=== PATIENT | female | born 2000 | race African-American/Black ===

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

== ENCOUNTER 2022-02-10 12:44 | Inpatient (IN) | payer MEDICAID ==
[~2022-02-10] VITALS: Ht 160 cm; Wt 73.0 kg
[2022-02-10] MEDS ORDERED: METHYLERGONOVINE MALEATE 0.2 MG/ML IM PRN (17:30)
[2022-02-10] MEDS ORDERED: LIDOCAINE HCL 1% 20ML VIAL (Pyxis) INJ INFIL SCH (17:30)
[2022-02-10] MEDS ORDERED: BUTORPHANOL TARTRATE 2 MG/ML VIAL IV PRN (17:30)
[2022-02-10] MEDS ORDERED: NALOXONE HCL 0.4 MG/ML 1ML VIAL IM PRN (17:30)
[2022-02-10] MEDS ORDERED: OXYTOCIN 30 UNITS/500ML NS PMX 500 ML IV SCH (17:30)
[2022-02-10] MEDS: LACTATED RINGERS 1,000 ML IV SCH ×3 (18:48→22:44)
[2022-02-10] MEDS ORDERED: PENICILLIN G POTASSIUM 5 MMU in DEXT 5% WATER 100 ML IV NR (19:00)
[2022-02-10 19:14] LABS: CLARITY URINE CLOUDY (CLEAR); COLOR URINE YELLOW (YELLOW); KETONES URINE 1+ (NEGATIVE); LEUKOCYTE ESTERASE URINE TRACE (NEGATIVE); NITRITE URINE NEGATIVE (NEGATIVE); OCCULT BLOOD URINE NEGATIVE (NEGATIVE); PH URINE 6.5 (4.5-8.0); PROTEIN URINE 3+ (NEGATIVE); SPECIFIC GRAVITY URINE 1.024 (1.005-1.030)
[2022-02-10 19:15] LABS: BASOPHILS % 0.2 % (0.0-2.0); EOSINOPHILS % 0.5 % (0.0-5.0); HEMATOCRIT. 27.7 % (36.0-48.0); HEMOGLOBIN. 9.1 g/dL (12.0-16.0); LYMPHOCYTES % 24.9 % (20.0-50.0); MEAN CORPUSCULAR HEMOGLOBIN 27.5 pg (28.0-32.0); MEAN CORPUSCULAR VOLUME 83.4 fL (81.0-99.0); MEAN PLATELET VOLUME 9.9 fl (7.4-10.4); MONOCYTES % 12.2 % (2.0-8.0); NEUTROPHILS % 62.2 % (40.0-76.0); PLATELET 178 x1000/uL (130-400); RED BLOOD CELL COUNT 3.32 mill/uL (4.2-5.4); RED CELL DISTRIBUTION WIDTH 13.6 % (11.6-14.6)
[2022-02-10 19:20] LABS: INR 0.9; PARTIAL THROMBOPLASTIN TIME 28.3 sec (23.4-31.0); PROTHROMBIN TIME 9.9 sec (9.6-11.0)
[2022-02-10] MEDS ORDERED: ROPIVACAINE HCL/PF EPIDURAL 200 ML EPI ONE (19:49)
[2022-02-10] MEDS ORDERED: FENTANYL CITRATE/PF 50MCG/ML 2ML VIAL ONE (19:49)
[2022-02-10 20:34] LABS: *AMPHETAMINES SCREEN URINE NEGATIVE (NEGATIVE); *BARBITURATES SCREEN URINE NEGATIVE (NEGATIVE); *BENZODIAZEPINES SCREEN URINE NEGATIVE (NEGATIVE); *COCAINE SCREEN URINE NEGATIVE (NEGATIVE); CANNABINOID URINE SCREEN NEGATIVE (NEGATIVE); METHADONE URINE SCREEN NEGATIVE (NEGATIVE); OPIATES URINE SCREEN NEGATIVE (NEGATIVE); PHENCYCLIDINE URINE SCREEN NEGATIVE (NEGATIVE)
[2022-02-10] MEDS ORDERED: ROPIVACAINE HCL/PF EPIDURAL 200 ML EPI SCH (20:45)
[2022-02-10 20:52] LABS: HEPATITIS B SURFACE ANTIGEN NEGATIVE
[2022-02-10] MEDS ORDERED: PENICILLIN G POTASSIUM 2.5 MMU in DEXTROSE 5% WATER 50 ML IV SCH (23:00)
[2022-02-11] MEDS ORDERED: OXYTOCIN 30 UNITS/500ML NS PMX 500 ML IV SCH (02:45)
[2022-02-11] MEDS ORDERED: METHYLERGONOVINE MALEATE 0.2 MG/ML IM PRN (02:45)
[2022-02-11] MEDS ORDERED: LANOLIN OINT 7GM TUBE TOP PRN (02:45)
[2022-02-11] MEDS ORDERED: IBUPROFEN 400MG TABLET PO PRN (02:45)
[2022-02-11] MEDS ORDERED: RHO(D) IMMUNE GLOBULIN 300 MCG/SYR IM PRN (02:45)
[2022-02-11] MEDS ORDERED: DIPHENHYDRAMINE 25MG CAPSULE PO PRN (02:45)
[2022-02-11 03:30] VITALS: BP 138/82
[2022-02-11] MEDS: IBUPROFEN 800MG TABLET PO PRN ×3 (03:50→21:52)
[2022-02-11 05:00] VITALS: BP 126/64
[2022-02-11 09:30] VITALS: BP 122/74
[2022-02-11] MEDS: PRENATAL VIT/FE FUMARATE/FA TABLET PO SCH (15:16)
[2022-02-11 20:00] VITALS: BP 122/77
[2022-02-12 04:30] VITALS: BP 122/86
[2022-02-12] MEDS: IBUPROFEN 800MG TABLET PO PRN ×3 (05:27→23:43)
[2022-02-12 08:00] VITALS: BP 120/76
[2022-02-12 08:10] LABS: BASOPHILS % 0.3 % (0.0-2.0); HEMATOCRIT. 26.4 % (36.0-48.0); HEMOGLOBIN. 8.7 g/dL (12.0-16.0); LYMPHOCYTES % 40.9 % (20.0-50.0); MEAN CORPUSCULAR HEMOGLOBIN 27.4 pg (28.0-32.0); MEAN CORPUSCULAR VOLUME 83.3 fL (81.0-99.0); MEAN PLATELET VOLUME 9.8 fl (7.4-10.4); MONOCYTES % 9.5 % (2.0-8.0); NEUTROPHILS % 48.3 % (40.0-76.0); PLATELET 187 x1000/uL (130-400); RED BLOOD CELL COUNT 3.17 mill/uL (4.2-5.4); RED CELL DISTRIBUTION WIDTH 13.9 % (11.6-14.6)
[2022-02-12 16:00] VITALS: BP 130/85
[2022-02-12] MEDS: PRENATAL VIT/FE FUMARATE/FA TABLET PO SCH (17:09)
[2022-02-12 20:00] VITALS: BP 126/82
[2022-02-13 04:00] VITALS: BP 121/76
[2022-02-13] MEDS: IBUPROFEN 800MG TABLET PO PRN (05:32)
[2022-02-13 08:00] VITALS: BP 133/89
[2022-02-13] MEDS ORDERED: IBUP-2029 MT (13:44)
== END 2022-02-13 20:00 | disposition home or self-care (01) | DRG 560 ==
LOC: OBSVTOIN 12:44 → 8 EST LDRP 12:44 → 8EST 02-11 05:50
PROVIDERS: ADMIT Obstetrics & Gynecology; ATTEND Obstetrics & Gynecology
PROC: 10E0XZZ Delivery of Products of Conception, External Approach (ICD-10-PCS; principal; 2022-02-11)
PROC: 3E0R3BZ Introduction of Anesthetic Agent into Spinal Canal, Percutaneous Approach (ICD-10-PCS; 2022-02-11)
PROC: 00HU33Z Insertion of Infusion Device into Spinal Canal, Percutaneous Approach (ICD-10-PCS; 2022-02-11)
DX: O99.02 Anemia complicating childbirth (principal); Z37.0 Single live birth; D62 Acute posthemorrhagic anemia; O69.81X0 Labor and delivery complicated by cord around neck, without compression, not applicable or unspecified; O99.52 Diseases of the respiratory system complicating childbirth; O99.354 Diseases of the nervous system complicating childbirth; G40.909 Epilepsy, unspecified, not intractable, without status epilepticus; J45.909 Unspecified asthma, uncomplicated; Z3A.38 38 weeks gestation of pregnancy; Z20.822 Contact with and (suspected) exposure to COVID-19
CPT/HCPCS: 36415; 76805; 76818; 80305; 81003; 85025; 86592; 86703; 86762; 86850; 86900; 87340; 87426; 99281; G0378; J2540; J2795; J3010; J7060; J7120; A4315; J2590

== ENCOUNTER 2022-07-03 20:01 | Emergency (ER) | payer MEDICAID ==
[~2022-07-03] VITALS: Ht 160 cm; Wt 67.1 kg
[~2022-07-03 20:01] MED LIST: IBUP-2029 MT
[2022-07-04] MEDS ORDERED: KETOROLAC 60MG/2ML VIAL IM ONE (01:00)
[2022-07-04 04:08] VITALS: BP 107/68
== END 2022-07-04 04:11 | disposition home or self-care (01) ==
LOC: ER 20:01
DX: G89.29 Other chronic pain (principal); M54.2 Cervicalgia
CPT/HCPCS: 72040; 99283

== ENCOUNTER 2024-08-29 15:52 | Emergency (ER) | payer MEDICAID ==
[~2024-08-29] VITALS: Ht 167.6 cm; Wt 72.0 kg
[2024-08-29 16:07] VITALS: O2SAT 99
[2024-08-29] MEDS: LEVETIRACETAM 1000MG PREMIX 100 ML IV STA (18:48)
[2024-08-29 19:30] LABS: BASOPHILS % 0.3 % (0.0-2.0); DIFFERENTIAL COMMENT 0; EOSINOPHILS % 0.5 % (0.0-5.0); HEMATOCRIT. 34.2 % (36.0-48.0); HEMOGLOBIN. 10.8 g/dL (12.0-16.0); LYMPHOCYTES % 12.2 % (20.0-50.0); MEAN CORPUSCULAR HEMOGLOBIN 25.1 pg (28.0-32.0); MEAN CORPUSCULAR HGB CONC 31.7 g/dL (31.0-37.0); MEAN PLATELET VOLUME 8.1 fl (7.4-10.4); MONOCYTES % 7.1 % (2.0-8.0); NEUTROPHILS % 79.9 % (40.0-76.0); PLATELET 319 x1000/uL (130-400); RED BLOOD CELL COUNT 4.33 mill/uL (4.2-5.4); RED CELL DISTRIBUTION WIDTH 15.6 % (11.6-14.6); WHITE BLOOD COUNT 11.9 x1000/uL (4.5-11.0)
[2024-08-29 19:39] LABS: CHLORIDE 104 mEq/L (98-107); POTASSIUM 4.2 mEq/L (3.5-5.1); SODIUM 139 mEq/L (136-145)
[2024-08-29 19:40] LABS: CALCIUM 9.4 mg/dL (8.7-10.4); CARBON DIOXIDE 27 mEq/L (21-32)
[2024-08-29 19:45] LABS: ETHANOL BLOOD < 10 mg/dL (<10); GLUCOSE 84 mg/dL (70-105); UREA NITROGEN BLOOD 8 mg/dL (9-23)
[2024-08-29 19:51] LABS: HCG SCREEN NEGATIVE
[2024-08-29 20:55] LABS: CLARITY URINE CLEAR (CLEAR); COLOR URINE YELLOW (YELLOW); GLUCOSE URINE NEGATIVE (NEGATIVE); KETONES URINE NEGATIVE (NEGATIVE); NITRITE URINE NEGATIVE (NEGATIVE); OCCULT BLOOD URINE NEGATIVE (NEGATIVE); PH URINE 6.5 (4.5-8.0); PROTEIN URINE NEGATIVE (NEGATIVE); SPECIFIC GRAVITY URINE 1.006 (1.005-1.030)
[2024-08-29 20:56] LABS: LEUKOCYTE ESTERASE URINE 2+ (NEGATIVE)
[2024-08-29] MEDS: KETOROLAC 30MG/ML VIAL IV ONE (21:02)
[2024-08-29 21:06] LABS: *AMPHETAMINES SCREEN URINE NEGATIVE (NEGATIVE); *BARBITURATES SCREEN URINE NEGATIVE (NEGATIVE); *BENZODIAZEPINES SCREEN URINE NEGATIVE (NEGATIVE); *COCAINE SCREEN URINE NEGATIVE (NEGATIVE); CANNABINOID URINE SCREEN NEGATIVE (NEGATIVE); ECSTASY MDMA SCREEN URINE NEGATIVE (NEGATIVE); METHADONE URINE SCREEN NEGATIVE (NEGATIVE); OPIATES URINE SCREEN NEGATIVE (NEGATIVE); PHENCYCLIDINE URINE SCREEN NEGATIVE (NEGATIVE)
[2024-08-29 21:07] LABS: BACTERIA URINE TRACE; RBC URINE NONE SEEN /hpf (0-2); SQUAMOUS EPITHELIAL CELL URINE FEW /lpf (RARE/1+)
[2024-08-29 21:33] VITALS: BP 98/62; PULSE 97; RESP 14; TEMP 36.8; O2SAT 97
== END 2024-08-29 21:38 | disposition home or self-care (01) ==
LOC: ER 15:52
DX: G40.409 Other generalized epilepsy and epileptic syndromes, not intractable, without status epilepticus (principal)
CPT/HCPCS: 80305; 80048; 81003; 80320; 84703; 85025; 36415; 96374; 96375; 99284; J1953; J1885; Z7610 ×3; A4606; G0480